=== PATIENT | male | born 2000 | race Caucasian/White ===

== ENCOUNTER 2022-08-30 18:03 | Emergency (ER) | payer BC ==
[2022-08-30] MEDS ORDERED: KETOROLAC 15 MG/ML 1 ML VIAL IVP STA (19:54)
[2022-08-30] MEDS ORDERED: SODIUM CHLORIDE 0.9% 1,000 ML IV STA (19:54)
[2022-08-30] MEDS ORDERED: ONDANSETRON 4 MG/2 ML VIAL IVP STA ×2 (19:54→23:28)
--- NOTE | 2022-08-30 20:07 | ED ---
Nausea/Vomiting/Diarrhea HPI - General Chief complaint: Upper Respiratory Infection Stated complaint: Cough,chest pain Time Seen by Provider: 08/30/22 19:35 Source: patient, family, RN notes reviewed Mode of arrival: ambulatory - History of Present Illness Initial comments: This is a 21-year-old male who presents to the emergency department for nausea, vomiting, coughing, and congestion. States that 4 days ago, he started vomiting, and has not been able to keep any food down since. He has tried drinking a few sips of water, but states that he throws that up each time. He does not have any associated abdominal pain. This has caused him to feel very weak. He also reports having fevers as high as 102F. He has also developed coughing, congestion, and body aches. Denies any sick contacts. Denies any changes in bowel habits. Denies any palpitations, abdominal pain, diarrhea, back pain, or headaches. MD complaint: nausea, vomiting Onset/Timin -: days(s) Associated Abdominal Pain: No Associated Symptoms: cough, diaphoresis, fever/chills, weakness - Related Data Previous Rx's Medication Instructions Recorded Albuterol Sulfate [Albuterol 1 puff PO Q4-6H PRN #8.5 gm 08/30/22 Sulfate Hfa] Doxycycline [Vibramycin] 100 mg PO BID 5 Days #10 capsule 08/30/22 Promethazine/Dextromethorphan 5 ml PO Q4-6H PRN #473 ml 08/30/22 [Promethazine-Dm Syrup] ondansetron HCL [Zofran Oral Soln] 4 mg PO Q8H PRN #20 ml 08/30/22 predniSONE 50 mg PO DAILY 5 Days #5 tablet 08/30/22 Allergies Allergy/AdvReac Type Severity Reaction Status Date / Time No Known Allergies Allergy Verified 08/30/22 18:11 Review of Systems ROS Statement: Those systems with pertinent positive or pertinent negative responses have been documented in the HPI. ROS Other: All systems not noted in ROS Statement are negative. Past Medical History Past Medical History: No Reported History History of Any Multi-Drug Resistant Organisms: None Reported Past Surgical History: No Surgical Hx Reported Past Psychological History: No Psychological Hx Reported Smoking Status: Never smoker Past Alcohol Use History: None Reported Past Drug Use History: None Reported General Exam General appearance: alert, in distress Head exam: Present: atraumatic, normocephalic, normal inspection ENT exam: Present: mucous membranes dry, TM's normal bilaterally, normal external ear exam Respiratory exam: Present: normal lung sounds bilaterally. Absent: respiratory distress, wheezes, rales, rhonchi, stridor Cardiovascular Exam: Present: regular rate, normal rhythm, normal heart sounds. Absent: systolic murmur, diastolic murmur, rubs, gallop, clicks GI/Abdominal exam: Present: hypoactive bowel sounds Neurological exam: Present: alert, oriented X3, CN II-XII intact Psychiatric exam: Present: normal affect, normal mood Skin exam: Present: other (Hot to the touch) Course Vital Signs 08/30/22 08/30/22 18:06 23:13 Temperature 99.8 F H 99.7 F H Pulse Rate 97 96 Respiratory 20 18 Rate Blood Pressure 126/75 110/57 O2 Sat by Pulse 99 94 L Oximetry Medical Decision Making - Medical Decision Making This is a 21-year-old male who presents to the emergency department for nausea, vomiting, and upper respiratory symptoms. Lab work was nonactionable. On the chest x-ray I am able to identify a right lobe consolidation, concerning for infectious process. He was given 1g of ceftriaxone in the emergency department for possible pneumonia. He was given Toradol for his body aches and Zofran with IV fluids for the nausea and vomiting. His d-dimer did return elevated at 1.99. CT angio of the chest was subsequently obtained. This did not identify any signs of a pulmonary embolus. It did better visualize the pneumonia, which was shown to be extensive in the middle and right lower lobe with possible involvement in the left lower lobe as well. Prescription for a 5 day course of doxycycline with a 5 day course of prednisone was provided. He was also given a prescription for Zofran to be used as needed for nausea and vomiting. Advised he slowly advance his diet as tolerated. Prescription for albuterol inhaler and promethazine DM cough medication provided as well to be used every 4-6 hours as needed for symptomatic management. Advise he take the first dose of the cough medication at night until he knows how it affects him, as it may be sedating. I did discuss with the patient and his mother, that he needs to have a repeat chest x-ray after finishing the medications to ensure that the pneumonia is improving or has resolved. It is unclear if the pneumonia and nausea/vomiting are related or are completely separate issues. His symptoms were completely controlled in the emergency department and the patient was able to drink water and eat crackers prior to discharge. Return precautions reviewed in depth, the patient is instructed to return to the emergency department with any new, worsening, or concerning symptoms. Patient and his mother verbalized understanding. This case was discussed in detail with the attending ED physician. Presentation, findings, and treatment plan discussed in detail as well. - Lab Data Result diagrams: 08/30/22 20:12 08/30/22 20:12 Lab Results 08/30/22 08/30/22 08/30/22 Range/Units 19:20 19:20 20:12 WBC 10.3 (4.0-11.0) k/uL RBC 4.51 (4.30-5.90) m/uL Hgb 14.2 (13.0-17.5) gm/dL Hct 40.5 (39.0-53.0) % MCV 89.9 (80.0-100.0) fL MCH 31.5 (25.0-35.0) pg MCHC 35.0 (31.0-37.0) g/dL RDW 12.3 (11.5-15.5) % Plt Count 199 (150-450) k/uL MPV 8.1 Neutrophils % 86 % Lymphocytes % 6 % Monocytes % 6 % Eosinophils % 0 % Basophils % 0 % Neutrophils # 8.8 H (1.3-7.7) k/uL Lymphocytes # 0.6 L (1.0-4.8) k/uL Monocytes # 0.6 (0-1.0) k/uL Eosinophils # 0.0 (0-0.7) k/uL Basophils # 0.0 (0-0.2) k/uL PT (9.0-12.0) sec INR (<1.2) APTT (22.0-30.0) sec D-Dimer (<0.60) mg/L FEU Sodium (137-145) mmol/L Potassium (3.5-5.1) mmol/L Chloride (98-107) mmol/L Carbon Dioxide (22-30) mmol/L Anion Gap mmol/L BUN (9-20) mg/dL Creatinine (0.66-1.25) mg/dL Est GFR (CKD-EPI)AfAm (>60 ml/min/1.73 sqM) Est GFR (CKD-EPI)NonAf (>60 ml/min/1.73 sqM) Glucose (74-99) mg/dL Calcium (8.4-10.2) mg/dL Total Bilirubin (0.2-1.3) mg/dL AST (17-59) U/L ALT (4-49) U/L Alkaline Phosphatase (38-126) U/L Troponin I (0.000-0.034) ng/mL Total Protein (6.3-8.2) g/dL Albumin (3.5-5.0) g/dL Amylase (30-110) U/L Lipase (23-300) U/L Urine Color Urine Appearance (Clear) Urine pH (5.0-8.0) Ur Specific [place] (1.001-1.035) Urine Protein (Negative) Urine Glucose (UA) (Negative) Urine Ketones (Negative) Urine Blood (Negative) Urine Nitrite (Negative) Urine Bilirubin (Negative) Urine Urobilinogen (<2.0) mg/dL Ur Leukocyte Esterase (Negative) Urine RBC (0-5) /hpf Urine WBC (0-5) /hpf Urine Mucus (None) /hpf Coronavirus (PCR) Not Detected (Not Detectd) Heterophile Antibody (Negative) Influenza Type A RNA Not Detected (Not Detectd) Influenza Type B (PCR) Not Detected (Not Detectd) 08/30/22 08/30/22 08/30/22 Range/Units 20:12 20:12 20:12 WBC (4.0-11.0) k/uL RBC (4.30-5.90) m/uL Hgb (13.0-17.5) gm/dL Hct (39.0-53.0) % MCV (80.0-100.0) fL MCH (25.0-35.0) pg MCHC (31.0-37.0) g/dL RDW (11.5-15.5) % Plt Count (150-450) k/uL MPV Neutrophils % % Lymphocytes % % Monocytes % % Eosinophils % % Basophils % % Neutrophils # (1.3-7.7) k/uL Lymphocytes # (1.0-4.8) k/uL Monocytes # (0-1.0) k/uL Eosinophils # (0-0.7) k/uL Basophils # (0-0.2) k/uL PT (9.0-12.0) sec INR (<1.2) APTT (22.0-30.0) sec D-Dimer (<0.60) mg/L FEU Sodium 136 L (137-145) mmol/L Potassium 3.9 (3.5-5.1) mmol/L Chloride 101 (98-107) mmol/L Carbon Dioxide 23 (22-30) mmol/L Anion Gap 12 mmol/L BUN 14 (9-20) mg/dL Creatinine 1.05 (0.66-1.25) mg/dL Est GFR (CKD-EPI)AfAm >90 (>60 ml/min/1.73 sqM) Est GFR (CKD-EPI)NonAf >90 (>60 ml/min/1.73 sqM) Glucose 112 H (74-99) mg/dL Calcium 8.6 (8.4-10.2) mg/dL Total Bilirubin 0.8 (0.2-1.3) mg/dL AST 39 (17-59) U/L ALT 29 (4-49) U/L Alkaline Phosphatase 108 (38-126) U/L Troponin I (0.000-0.034) ng/mL Total Protein 6.9 (6.3-8.2) g/dL Albumin 4.1 (3.5-5.0) g/dL Amylase 36 (30-110) U/L Lipase 59 (23-300) U/L Urine Color Yellow Urine Appearance Clear (Clear) Urine pH 6.5 (5.0-8.0) Ur Specific [place] 1.034 (1.001-1.035) Urine Protein 2+ H (Negative) Urine Glucose (UA) Negative (Negative) Urine Ketones 2+ H (Negative) Urine Blood Negative (Negative) Urine Nitrite Negative (Negative) Urine Bilirubin Negative (Negative) Urine Urobilinogen 4.0 (<2.0) mg/dL Ur Leukocyte Esterase Negative (Negative) Urine RBC 2 (0-5) /hpf Urine WBC 14 H (0-5) /hpf Urine Mucus Moderate H (None) /hpf Coronavirus (PCR) (Not Detectd) Heterophile Antibody Negative (Negative) Influenza Type A RNA (Not Detectd) Influenza Type B (PCR) (Not Detectd) 08/30/22 08/30/22 Range/Units 20:52 20:52 WBC (4.0-11.0) k/uL RBC (4.30-5.90) m/uL Hgb (13.0-17.5) gm/dL Hct (39.0-53.0) % MCV (80.0-100.0) fL MCH (25.0-35.0) pg MCHC (31.0-37.0) g/dL RDW (11.5-15.5) % Plt Count (150-450) k/uL MPV Neutrophils % % Lymphocytes % % Monocytes % % Eosinophils % % Basophils % % Neutrophils # (1.3-7.7) k/uL Lymphocytes # (1.0-4.8) k/uL Monocytes # (0-1.0) k/uL Eosinophils # (0-0.7) k/uL Basophils # (0-0.2) k/uL PT 10.3 (9.0-12.0) sec INR 0.9 (<1.2) APTT 25.2 (22.0-30.0) sec D-Dimer 1.99 H (<0.60) mg/L FEU Sodium (137-145) mmol/L Potassium (3.5-5.1) mmol/L Chloride (98-107) mmol/L Carbon Dioxide (22-30) mmol/L Anion Gap mmol/L BUN (9-20) mg/dL Creatinine (0.66-1.25) mg/dL Est GFR (CKD-EPI)AfAm (>60 ml/min/1.73 sqM) Est GFR (CKD-EPI)NonAf (>60 ml/min/1.73 sqM) Glucose (74-99) mg/dL Calcium (8.4-10.2) mg/dL Total Bilirubin (0.2-1.3) mg/dL AST (17-59) U/L ALT (4-49) U/L Alkaline Phosphatase (38-126) U/L Troponin I <0.012 (0.000-0.034) ng/mL Total Protein (6.3-8.2) g/dL Albumin (3.5-5.0) g/dL Amylase (30-110) U/L Lipase (23-300) U/L Urine Color Urine Appearance (Clear) Urine pH (5.0-8.0) Ur Specific [place] (1.001-1.035) Urine Protein (Negative) Urine Glucose (UA) (Negative) Urine Ketones (Negative) Urine Blood (Negative) Urine Nitrite (Negative) Urine Bilirubin (Negative) Urine Urobilinogen (<2.0) mg/dL Ur Leukocyte Esterase (Negative) Urine RBC (0-5) /hpf Urine WBC (0-5) /hpf Urine Mucus (None) /hpf Coronavirus (PCR) (Not Detectd) Heterophile Antibody (Negative) Influenza Type A RNA (Not Detectd) Influenza Type B (PCR) (Not Detectd) - Radiology Data Radiology results: report reviewed, image reviewed Disposition Clinical Impression: Pneumonia, Nausea & vomiting Disposition: HOME SELF-CARE Instructions (If sedation given, give patient instructions): Acute Nausea and Vomiting (ED), Pneumonia (ED) Additional Instructions: Return to the emergency department with any new, worsening, or concerning symptoms. Take the antibiotic twice daily for 5 days, take the prednisone daily for 5 days, the Zofran can be used up to every 8 hours as needed for nausea and vomiting. The cough syrup can be used every 4-6 hours, take your first dose at night until you know how it affects you, as it may be sedating. The albuterol inhaler can be used every 4-6 hours as well for coughing and difficulty breathing. Slowly advance your diet as tolerated and make sure that you remain well-hydrated. Follow up with your primary care provider in 1-2 days. Prescriptions: Albuterol Sulfate [Albuterol Sulfate Hfa] 1 puff PO Q4-6H PRN #8.5 gm PRN Reason: Shortness Of Breath predniSONE 50 mg PO DAILY 5 Days #5 tablet Promethazine/Dextromethorphan [Promethazine-Dm Syrup] 5 ml PO Q4-6H PRN #473 ml PRN Reason: Cough Doxycycline [Vibramycin] 100 mg PO BID 5 Days #10 capsule ondansetron HCL [Zofran Oral Soln] 4 mg PO Q8H PRN #20 ml PRN Reason: Nausea And Vomiting Is patient prescribed a controlled substance at d/c from ED?: No Referrals: Nonstaff,Physician [Primary Care Provider] - 1-2 days
--- NOTE | 2022-08-30 20:28 | XR ---
EXAMINATION TYPE: XR chest 2V DATE OF EXAM: 08/30/2022 7:25 PM COMPARISON: None TECHNIQUE: XR chest 2V . CLINICAL INDICATION:Male, 21 years old with history of Cough; FINDINGS: Lungs/Pleura: Right middle lobe patchy airspace consolidation with areas of atelectasis. Left lung is clear. No pneumothorax or pleural effusion. Pulmonary vascularity: Unremarkable. Heart/mediastinum: Cardiomediastinal silhouette is unremarkable. Musculoskeletal: No acute osseous pathology. IMPRESSION: Right focal airspace consolidation concerning for acute infectious process such as pneumonia.
[2022-08-30 20:29] LABS: Basophils % (A) 0 %; Eosinophils % (A) 0 %; HCT 40.5 % (39.0-53.0); HGB 14.2 gm/dL (13.0-17.5); Lymphocytes # (A) 0.6 k/uL (1.0-4.8); Lymphocytes % (A) 6 %; MCH 31.5 pg (25.0-35.0); MCV 89.9 fL (80.0-100.0); Mean Platelet Volume 8.1; Monocytes # (A) 0.6 k/uL (0-1.0); Monocytes % (A) 6 %; Neutrophils # (A) 8.8 k/uL (1.3-7.7); Neutrophils % (A) 86 %; Platelet Count 199 k/uL (150-450); RBC 4.51 m/uL (4.30-5.90); RDW 12.3 % (11.5-15.5); WBC 10.3 k/uL (4.0-11.0)
[2022-08-30] MEDS ORDERED: cefTRIAXone IN SWFI 1,000 MG/10 ML SYRINGE IVP STA ×2 (20:33→20:34)
[2022-08-30 20:43] LABS: Appearance,Urine Clear (Clear); Bilirubin,Urine Negative (Negative); Blood,Urine Negative (Negative); Color,Urine Yellow; Glucose,Urine (UA) Negative (Negative); Ketones,Urine 2+ (Negative); Leukocyte Esterase,Urine Negative (Negative); Mucus,Urine Moderate /hpf; Nitrite,Urine Negative (Negative); PH, Urine 6.5 (5.0-8.0); Protein,Urine 2+ (Negative); RBC,Urine 2 /hpf (0-5); Specific Gravity,Urine 1.034 (1.001-1.035); WBC,Urine 14 /hpf (0-5)
[2022-08-30 20:44] LABS: ALT 29 U/L (4-49); AST 39 U/L (17-59); African American GFR (CKD) >90 (>60 ml/min/1.73 sqM); Albumin 4.1 g/dL (3.5-5.0); Alkaline Phosphatase 108 U/L (38-126); Amylase 36 U/L (30-110); Anion Gap 12 mmol/L; Blood Urea Nitrogen 14 mg/dL (9-20); Calcium 8.6 mg/dL (8.4-10.2); Carbon Dioxide 23 mmol/L (22-30); Chloride 101 mmol/L (98-107); Glucose 112 mg/dL (74-99); Lipase 59 U/L (23-300); Non-African American GFR(CKD) >90 (>60 ml/min/1.73 sqM); Potassium 3.9 mmol/L (3.5-5.1); Sodium 136 mmol/L (137-145); Total Bilirubin 0.8 mg/dL (0.2-1.3); Total Protein 6.9 g/dL (6.3-8.2)
[2022-08-30] MEDS ORDERED: ONDANSETRON 4 MG ODT STARTER PACK 2 TAB BTL PO STA (21:45)
[2022-08-30 22:33] LABS: INR 0.9 (<1.2); Partial Thromboplastin Time 25.2 sec (22.0-30.0); Prothrombin Time 10.3 sec (9.0-12.0)
[2022-08-30 23:14] VITALS: BP 110/57; PULSE 96; RESP 18; TEMP 99.7
[2022-08-30] MEDS ORDERED: ACETAMINOPHEN TAB 325 MG TAB PO STA (23:28)
--- NOTE | 2022-08-30 23:46 | CT ---
EXAMINATION TYPE: CT chest angio for PE DATE OF EXAM: 08/30/2022 COMPARISON: None HISTORY: FEVER, COUGH, SOB, CHEST PAIN, NEG COVID AT HOME, NAUSEA/VOMITING, ELEVATED D DIMER CT DLP: 454.9 mGycm Automated exposure control for dose reduction was used. CONTRAST: Performed with IV Contrast, patient injected with 100 mL of Isovue 370. There are Three-D postprocessed images. There is some extensive airspace consolidation right lower lobe there is some minimal infiltrate left lower lobe. No pleural effusion. Heart is top normal in size. No pericardial effusion. No mediastina l adenopathy. There are no hilar masses. I see no evidence of filling defect in the pulmonary arterie s. The thoracic spine is intact. No compression fracture. The sternum is intact. IMPRESSION: No evidence of pulmonary embolism. Extensive pneumonia in the right lower lobe and right middle lobe. Borderline cardiomegaly. Minimal pneumonia left lower lobe.
== END 2022-08-31 00:15 | disposition home or self-care (01) ==
LOC: EC 18:03
DX: J18.9 Pneumonia, unspecified organism (principal); Z20.822 Contact with and (suspected) exposure to COVID-19
CPT/HCPCS: 99285 ×2; 96374 ×2; 96375 ×3; 96376 ×2; 36415; 85379; 80053; 82150; 83690; 84484; 85025; 85610; 85730; 86308; 81001; 87040; 87086; 87077; 87186; 87502; 87635; 71046; 71275; J2405; J0696; J1885; S0119; Q9967

== ENCOUNTER 2022-08-31 17:07 | Emergency (ER) | payer BC ==
[2022-08-31 17:27] VITALS: TEMP 97.5
[2022-08-31 17:50] VITALS: RESP 18
--- NOTE | 2022-08-31 17:57 | ED ---
General Adult HPI - General Chief complaint: Recheck/Abnormal Lab/Rx Stated complaint: return visit,labs Time Seen by Provider: 08/31/22 17:34 Source: patient, family, RN notes reviewed Mode of arrival: ambulatory Limitations: no limitations - History of Present Illness Initial comments: Patient is a pleasant 21-year-old male presenting to the emergency department with concern for abnormal labs. Patient received a call today and advised come to emergency department. Patient was here yesterday and diagnosed with pneumonia. Patient did receive IV antibiotics. Patient has been sick for the past 3-4 days. Patient does have cough. Patient did have fevers, no fever today. Patient states overall he is feeling better from yesterday. Mom is present and helps provide history. - Related Data Home Medications Medication Instructions Recorded Confirmed Albuterol Sulfate [Albuterol 1 puff INHALATION RT-Q4H PRN 08/31/22 08/31/22 Sulfate Hfa] Ondansetron Odt [Zofran Odt] 4 mg PO Q6H PRN 08/31/22 08/31/22 Previous Rx's Medication Instructions Recorded Doxycycline [Vibramycin] 100 mg PO BID 5 Days #10 capsule 08/30/22 Promethazine/Dextromethorphan 5 ml PO Q4-6H PRN #473 ml 08/30/22 [Promethazine-Dm Syrup] predniSONE 50 mg PO DAILY 5 Days #5 tablet 08/30/22 Allergies Allergy/AdvReac Type Severity Reaction Status Date / Time No Known Allergies Allergy Verified 08/31/22 20:28 Review of Systems ROS Statement: Those systems with pertinent positive or pertinent negative responses have been documented in the HPI. ROS Other: All systems not noted in ROS Statement are negative. Constitutional: Reports: as per HPI Eyes: Denies: eye pain ENT: Denies: ear pain Respiratory: Reports: as per HPI, cough Cardiovascular: Denies: chest pain Endocrine: Denies: fatigue Gastrointestinal: Denies: abdominal pain Genitourinary: Denies: dysuria Musculoskeletal: Denies: back pain Skin: Denies: rash Neurological: Denies: weakness Past Medical History Past Medical History: No Reported History History of Any Multi-Drug Resistant Organisms: None Reported Past Surgical History: No Surgical Hx Reported Past Psychological History: No Psychological Hx Reported Smoking Status: Never smoker Past Alcohol Use History: None Reported Past Drug Use History: None Reported General Exam Limitations: no limitations General appearance: alert, in no apparent distress Head exam: Present: normocephalic Eye exam: Present: normal appearance Neck exam: Present: normal inspection Respiratory exam: Present: normal lung sounds bilaterally Cardiovascular Exam: Present: regular rate, normal rhythm GI/Abdominal exam: Present: soft. Absent: tenderness Extremities exam: Present: normal inspection. Absent: pedal edema, calf tenderness Neurological exam: Present: alert Psychiatric exam: Present: normal affect, normal mood Skin exam: Present: normal color Course Vital Signs 08/31/22 08/31/22 17:24 17:48 Temperature 97.5 F L Pulse Rate 58 L Respiratory 16 18 Rate Blood Pressure 120/69 O2 Sat by Pulse 99 Oximetry Medical Decision Making - Medical Decision Making Patient reevaluated and resting comfortably in bed. Patient again states that he is feeling much better than yesterday. Patient and mother updated. Case was discussed with Dr. mittal who feels patient can be discharged home. Patient does have good vital signs and does look good clinically. Patient does have recent strep pneumoniae blood culture. Patient however is improving with antibiotics and should continue current treatment. Patient is advised close follow-up with his primary care physician in the next 24 hours. Patient also advised to return for fever or worsening symptoms or difficulty breathing. Patient and mother both demonstrate understanding of this. Patient has primary care physician out of that they can follow-up with. - Lab Data Result diagrams: 08/31/22 18:36 08/31/22 18:36 Lab Results 08/31/22 08/31/22 08/31/22 Range/Units 18:36 18:36 18:36 WBC 5.5 (4.0-11.0) k/uL RBC 4.58 (4.30-5.90) m/uL Hgb 14.4 (13.0-17.5) gm/dL Hct 42.4 (39.0-53.0) % MCV 92.6 (80.0-100.0) fL MCH 31.4 (25.0-35.0) pg MCHC 34.0 (31.0-37.0) g/dL RDW 12.1 (11.5-15.5) % Plt Count 226 (150-450) k/uL MPV 7.8 Neutrophils % 81 % Lymphocytes % 13 % Monocytes % 4 % Eosinophils % 1 % Basophils % 0 % Neutrophils # 4.5 (1.3-7.7) k/uL Lymphocytes # 0.7 L (1.0-4.8) k/uL Monocytes # 0.2 (0-1.0) k/uL Eosinophils # 0.0 (0-0.7) k/uL Basophils # 0.0 (0-0.2) k/uL Sodium 141 (137-145) mmol/L Potassium 4.6 (3.5-5.1) mmol/L Chloride 102 (98-107) mmol/L Carbon Dioxide 29 (22-30) mmol/L Anion Gap 10 mmol/L BUN 13 (9-20) mg/dL Creatinine 0.91 (0.66-1.25) mg/dL Est GFR (CKD-EPI)AfAm >90 (>60 ml/min/1.73 sqM) Est GFR (CKD-EPI)NonAf >90 (>60 ml/min/1.73 sqM) Glucose 124 H (74-99) mg/dL Plasma Lactic Acid [place] 1.3 (0.7-2.0) mmol/L Calcium 8.9 (8.4-10.2) mg/dL Total Bilirubin 0.6 (0.2-1.3) mg/dL AST 38 (17-59) U/L ALT 33 (4-49) U/L Alkaline Phosphatase 103 (38-126) U/L C-Reactive Protein 18.7 H (<1.0) mg/dL Total Protein 7.3 (6.3-8.2) g/dL Albumin 4.3 (3.5-5.0) g/dL - Radiology Data Radiology results: image reviewed (Right middle/lower infiltrate similar to yesterday's films) Disposition Clinical Impression: Pneumonia Disposition: HOME SELF-CARE Condition: Stable Instructions (If sedation given, give patient instructions): Bacterial Pneumonia (ED) Additional Instructions: Please do follow-up with primary care physician within 24 hours. Return for fever, difficult to breathing, uncontrolled cough, weakness or fatigue, worsening symptoms or any other concerns. Please do continue antibiotics as directed. Is patient prescribed a controlled substance at d/c from ED?: No Referrals: Nonstaff,Physician [Primary Care Provider] - 1-2 days Time of Disposition: 20:44
--- NOTE | 2022-08-31 18:36 | XR ---
EXAMINATION TYPE: XR chest 2V DATE OF EXAM: 08/31/2022 COMPARISON: Yesterday HISTORY: Cough TECHNIQUE: 2 views FINDINGS: There is airspace consolidation in the right middle lobe and to a lesser extent the right l ower lobe. Left lung is fairly clear. Heart and mediastinum are normal. No pleural effusion. There ar e no hilar masses. Mediastinum is normal. Bony thorax is intact. IMPRESSION: There is right middle lobe and right lower lobe pneumonia without change compared to yest joey.
[2022-08-31 18:53] LABS: Basophils % (A) 0 %; Eosinophils % (A) 1 %; HCT 42.4 % (39.0-53.0); HGB 14.4 gm/dL (13.0-17.5); Lymphocytes # (A) 0.7 k/uL (1.0-4.8); Lymphocytes % (A) 13 %; MCH 31.4 pg (25.0-35.0); MCV 92.6 fL (80.0-100.0); Mean Platelet Volume 7.8; Monocytes # (A) 0.2 k/uL (0-1.0); Monocytes % (A) 4 %; Neutrophils # (A) 4.5 k/uL (1.3-7.7); Neutrophils % (A) 81 %; Platelet Count 226 k/uL (150-450); RBC 4.58 m/uL (4.30-5.90); RDW 12.1 % (11.5-15.5); WBC 5.5 k/uL (4.0-11.0)
[2022-08-31] MEDS: SODIUM CHLORIDE 0.9% 500 ML 500 ML IV SCH (18:56)
[2022-08-31 19:54] LABS: ALT 33 U/L (4-49); AST 38 U/L (17-59); African American GFR (CKD) >90 (>60 ml/min/1.73 sqM); Albumin 4.3 g/dL (3.5-5.0); Alkaline Phosphatase 103 U/L (38-126); Anion Gap 10 mmol/L; Blood Urea Nitrogen 13 mg/dL (9-20); Calcium 8.9 mg/dL (8.4-10.2); Carbon Dioxide 29 mmol/L (22-30); Chloride 102 mmol/L (98-107); Glucose 124 mg/dL (74-99); Non-African American GFR(CKD) >90 (>60 ml/min/1.73 sqM); Potassium 4.6 mmol/L (3.5-5.1); Sodium 141 mmol/L (137-145); Total Bilirubin 0.6 mg/dL (0.2-1.3); Total Protein 7.3 g/dL (6.3-8.2)
[2022-08-31 20:11] LABS: C Reactive Protein 18.7 mg/dL (<1.0)
[2022-08-31 21:24] VITALS: BP 111/72; PULSE 65
== END 2022-08-31 21:23 | disposition home or self-care (01) ==
LOC: EC 17:07
DX: J15.9 Unspecified bacterial pneumonia (principal)
CPT/HCPCS: 99283; 36415; 80053; 83605; 85025; 86140; 87040; 84145; 71046; 96365; 96361; J0696